=== PATIENT | female | born 1970 | race Caucasian/White ===

== ENCOUNTER 2017-03-14 06:13 | Emergency (ER) | payer MEDICAID, OTHER ==
--- NOTE | 2017-03-14 06:27 | ED Physician Documentation ---
PD HPI LOWER EXT INJURY - Stated complaint Stated Complaint: KNEE PX - Chief complaint Chief Complaint: Ext Problem - History obtained from History obtained from: Patient - History of Present Illness PD HPI LOW EXT INJURY LOCATION: Both Type of injury: Twist (she was wrestling with partner and had knees in kneeling valgus position and then was forced outward bilaterally. Had abrupt pain medially in both knees and hurts to move them (feels better kept bent, with left knee much worse than right).) Where injury occurred: Home Timing - onset: How many hours ago (2-3) Timing - details: Abrupt onset, Still present Worsened by: Moving (valgus/varus movement hurts, as does full extension of left knee.) Associated symptoms: No: Weakness, Numbness, Swelling Contributing factors: No: Prior ortho surgery Similar symptoms before: Has not had sx before Recently seen: Not recently seen Review of Systems Skin: denies: Abrasion (s), Laceration (s) Neurologic: denies: Focal weakness, Numbness PD PAST MEDICAL HISTORY - Past Medical History Past Medical History: Yes GI: Ulcerative colitis Musculoskeletal: None - Past Surgical History Past Surgical History: No - Present Medications Home Medications: Ambulatory Orders Medication Instructions Recorded Confirmed Hydrocodone/Acetaminophen [[place] 1 each PO Q6H PRN #20 tablet 03/14/17 5-325 Tablet] Naproxen [Naprosyn] 500 mg PO BID #20 tablet 03/14/17 - Allergies Allergies/Adverse Reactions: Allergies Allergy/AdvReac Type Severity Reaction Status Date / Time No Known Drug Allergies Allergy Verified 03/14/17 06:21 - Social History Does the pt smoke?: No Smoking Status: Never smoker Does the pt drink ETOH?: Yes ETOH Use: Wine - Immunizations Immunizations are current?: Yes PD ED PE NORMAL - Vitals Vital signs reviewed: Yes - General General: Alert and oriented X 3, Well developed/nourished, Other (appears in pain with knees moderately flexed as most comfortable. ) - Back Back: No spinal TTP - Derm Derm: Normal color, Warm and dry - Extremities Extremities: Other (both knees similar, with left worse: tender medially joint line without deformity. Lateral aspects and patellae without focal tenderness. Cruciate testing without pain nor laxity. Valgus stress just a little hurts medially both sides (left much worse). Unable to assess laxity due to the amount of pain. ) - Neuro Neuro: Alert and oriented X 3, No motor deficit, No sensory deficit Results - Vitals Vitals: Vital Signs - 24 hr 03/14/17 06:19 Temperature 36.0 C L Heart Rate 88 Respiratory 18 Rate Blood Pressure 140/87 H O2 Saturation 100 Oxygen O2 Source Room air - Rads (name of study) knees bilaterally Radiology: Prelim report reviewed, EMP read contemporaneously (no acute fractures. ) PD MEDICAL DECISION MAKING - ED course Complexity details: considered differential (has pain of both knees but right is mild. Left is quite painful and tender medially with pain on slight valgus stress. Unable to assess laxity due to pain, so will assume torn MCL (consider medial meniscal as well). ACL seems intact. ), d/w patient Departure - Departure Disposition: 01 Home, Self Care Clinical Impression: Strain of knee, bilateral Knee MCL sprain Qualifiers: Encounter type: initial encounter Laterality: left Qualified Code(s): S83.412A - Sprain of medial collateral ligament of left knee, initial encounter Condition: Stable Record reviewed to determine appropriate education?: Yes Instructions: ED Sprain Knee Follow-Up: SANDRA Villagran [Provider Group] Dimitry Reynolds MD [Provider Admit Priv/Credential] - Prescriptions: Naproxen [Naprosyn] 500 mg PO BID #20 tablet Hydrocodone/Acetaminophen [[place] 5-325 Tablet] 1 each PO Q6H PRN #20 tablet PRN Reason: Pain Comments: The area of pain and mechanism would suggest strain and possible tear of the MCL (medial collateral ligament). Use the knee brace on the worst knee and crutches if needed for comfort. Naproxen twice daily for 7-10 days. Add Tylenol or Hydrocodone as needed for pains. Recheck with PMD or Ortho in about 3-5 days after some time for the initial injury pain to subside. Call for appt.
[2017-03-14] MEDS ORDERED: HYDROcod/ACETAM 5/325 MG TABLET PO STA (06:39)
[2017-03-14] MEDS ORDERED: IBUPROFEN 600 MG TABLET PO STA (06:39)
[2017-03-14] MEDS ORDERED: HYDROcod/ACETAM 5/325 MG TABLET ONE (06:41)
[2017-03-14] MEDS ORDERED: IBUPROFEN 600 MG TABLET PO ONE (06:41)
--- NOTE | 2017-03-14 07:56 | XRAY Preliminary Report ---
Exam: XR Knee 3 View BILAT IMPRESSION: No acute bony abnormality. [facility] SITE ID: [id number]
--- NOTE | 2017-03-14 07:59 | XRAY Report ---
EXAMS: 1. Right Knee Radiography 2. Left Knee Radiography EXAM DATE:03/14/2017 07:34 AM. CLINICAL HISTORY:Medial pain both sides; valgus strain. COMPARISON: None. TECHNIQUE: 3 views each. FINDINGS: Right Knee: Bones: Normal. No fractures or bone lesions. Joints: Normal. No effusion. No subluxations. Soft Tissues: Normal. No soft tissue swelling. Left Knee: Bones: Normal. No fractures or bone lesions. Joints: Normal. No effusion. No subluxations. Soft Tissues: Normal. No soft tissue swelling. IMPRESSION: No acute bony abnormality. [facility] Referring Provider Line: [phone] SITE ID: [id number]
[2017-03-14 09:20] VITALS: BP 114/77
== END 2017-03-14 09:21 | disposition home or self-care (01) ==
LOC: ED 06:13
DX: S83.412A Sprain of medial collateral ligament of left knee, initial encounter (principal); X50.1XXA Overexertion from prolonged static or awkward postures, initial encounter; Y93.72 Activity, wrestling; Y92.239 Unspecified place in hospital as the place of occurrence of the external cause
CPT/HCPCS: 73562; 99283; A9270